=== PATIENT | female | born 1990 | race Caucasian/White ===

== ENCOUNTER 2020-03-31 13:38 | Emergency (ER) | payer OTHER ==
[~2020-03-31] VITALS: Ht 172.7 cm; Wt 110.7 kg
[2020-03-31] MEDS ORDERED: NAPROSYN500 MG PO (15:19)
[2020-03-31 16:17] VITALS: BP 123/75
== END 2020-03-31 18:08 | disposition home or self-care (01) ==
LOC: ER 13:38
DX: K13.79 Other lesions of oral mucosa (principal); K02.9 Dental caries, unspecified; K21.9 Gastro-esophageal reflux disease without esophagitis; Z88.8 Allergy status to other drugs, medicaments and biological substances; Z91.040 Latex allergy status

== ENCOUNTER 2020-04-08 18:31 | Emergency (ER) | payer OTHER ==
[~2020-04-08] VITALS: Ht 172.7 cm; Wt 110.7 kg
[~2020-04-08 18:31] MED LIST: NAPROSYN500 MG PO
[2020-04-08] MEDS ORDERED: TRAMADOL 50 MG50 MG PO (19:43)
[2020-04-08] MEDS ORDERED: NAPROSYN500 MG PO (19:43)
[2020-04-08 23:16] VITALS: BP 137/67
== END 2020-04-08 21:38 | disposition home or self-care (01) ==
LOC: ER 18:31
DX: S80.12XA Contusion of left lower leg, initial encounter (principal); S83.92XA Sprain of unspecified site of left knee, initial encounter; K21.9 Gastro-esophageal reflux disease without esophagitis; Z79.899 Other long term (current) drug therapy; Z91.040 Latex allergy status; Z88.8 Allergy status to other drugs, medicaments and biological substances; W01.0XXA Fall on same level from slipping, tripping and stumbling without subsequent striking against object, initial encounter; Y93.89 Activity, other specified; Y92.89 Other specified places as the place of occurrence of the external cause; Y99.8 Other external cause status